=== PATIENT | male | born 1950 | race Caucasian/White ===

== ENCOUNTER → 2017-10-06 | Outpatient (CLI) | payer OTHER | LOC: CAT 10:38 | DX: M47.894 Other spondylosis, thoracic region (principal); I77.810 Thoracic aortic ectasia; J98.11 Atelectasis; J43.9 Emphysema, unspecified; M25.78 Osteophyte, vertebrae; J98.4 Other disorders of lung ==

== ENCOUNTER → 2020-08-15 | Outpatient (CLI) | payer OTHER ==
[~2020-08-15] MED LIST: HYDROCHLOROTH12.5 M2 PO; LOSARTAN POTASS50 MG PO; MELOXICAM7.5 MG PO; PROTONIX40 M2 PO
== END ==
LOC: LAB 08:16
PROVIDERS: ATTEND Surgery
DX: Z01.812 Encounter for preprocedural laboratory examination (principal); Z20.828 Contact with and (suspected) exposure to other viral communicable diseases

== ENCOUNTER 2020-08-20 06:29 | Day surgery (SDC) | payer OTHER ==
[~2020-08-20] VITALS: Ht 172.7 cm; Wt 90.7 kg
[2020-08-20 07:25] LABS: CREATININE 0.9 mg/dL (0.7-1.3); POTASSIUM 4.3 mmol/L (3.5-5.1)
--- NOTE | 2020-08-20 07:37 | EKG ---
[facility] [place] [address] ELECTROCARDIOGRAM REPORT Name: PALMA FREEMAN Room #: 150-4 [facility]..#: [id number] Admission: 08/20/20 Attend Phys: Vito Adams MD Discharge: Date of : 52 Report #: [id number] THIS REPORT FOR: cc: Aman Chacon David J. 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
[2020-08-20 07:58] VITALS: BP 134/92
[2020-08-20] MEDS ORDERED: NORCO 5-325 TA1 EAC2 PO (09:59)
[2020-08-20 10:22] VITALS: BP 134/92
--- NOTE | 2020-08-21 08:49 | H ---
[facility] [place] [address] HISTORY AND PHYSICAL Name: PALMA FREEMAN Room #: DEP [facility]#: [id number] Admission: 08/20/20 Attend Phys: Vito Adams MD Discharge: 08/20/20 Date of : 52 Report #: [id number] THIS REPORT FOR: cc: Aman Chacon,Aman Hunter,Vito Mina MD ~ CC: Aman Adams DATE OF SERVICE: 08/20/2020 SURGERY ADMISSION HISTORY AND PHYSICAL PATIENT OF: Dr. Vito Adams and Dr. Aman Chacon. DATE OF ADMISSION AND SURGERY: 08/20/2020 CHIEF COMPLAINT: Left upper quadrant abdominal pain and abdominal bulge. HISTORY OF PRESENT ILLNESS: The patient is a 70-year-old white male, notes that he had an umbilical bulge for about 5 years. He does not represent any significant discomfort at this time. He has had some left upper quadrant pain for about a year, but it only occurs when he turns and twists a certain way in bed. He relaxes and massages the area and the pain eventually goes away. He states he also noticed this bulge when he goes to sit up. He saw Dr. Chacon who recommended surgical consultation for these 3 problems. The patient denied any changes in bowel or bladder habits. He had a normal colonoscopy a year ago. PAST MEDICAL HISTORY: Arthritis, hypertension, diastasis recti, plastic surgical ear repair, cervical disk surgery. MEDICATIONS: Hydrochlorothiazide 12.5 mg p.o. every day, losartan 50 mg p.o. every day, pantoprazole 40 mg p.o. every day, meloxicam 7.5 mg p.o. every day, multivitamin. ALLERGIES: AMOXICILLIN AND CLAVULANIC ACID CAUSES A RASH AND WELTS. FAMILY HISTORY: Noncontributory. SOCIAL HISTORY: , retired, does not smoke, drinks alcohol occasionally. REVIEW OF SYSTEMS: Pertinent positives as above. Full review of systems otherwise negative. PHYSICAL EXAMINATION: GENERAL: This is a well-developed, well-nourished, obese white male in [address] [address] HISTORY AND PHYSICAL Name: PALMA FREEMAN Room #: [facility]#: [id number] Admission: 08/20/20 Attend Phys: Vito Adams MD Discharge: 08/20/20 Date of : 52 Report #: [id number]. VITAL SIGNS: Stable. He is afebrile. Height 68 inches, weight is 206 pounds. HEENT: Unremarkable. LUNGS: Clear to auscultation bilaterally. Normal excursion. CARDIOVASCULAR: Regular rate and rhythm. No murmurs, S3 or S4. No PMI. ABDOMEN: Soft, flat and nontender. No palpable masses, no organomegaly. He has a diastasis recti. He is examined in the standing, supine and flexed position. There is a palpable partially reducible, incarcerated umbilical hernia. No other organomegaly or masses. No rebound or guarding. EXTREMITIES: No clubbing, cyanosis or edema. NEUROLOGIC: Intact. No focal motor or sensory deficits. Mental status is clear. IMPRESSION: A 70-year-old white male with left upper quadrant abdominal musculoskeletal strain, asymptomatic diastasis recti and an umbilical hernia, which is partially incarcerated. I fully discussed with the patient the diagnosis, prognosis and treatment options. I am recommending a surgical repair of his umbilical hernia. He states he understands and agrees to proposed surgery. PLAN: We will perform repair of an incarcerated umbilical hernia under local IV sedation as an outpatient at [facility]. The procedure and its risks, benefits and possible complications were fully discussed with the patient including possible need for mesh. He states he understands and agrees to proposed surgery. <ELECTRONICALLY SIGNED> By: Vito Adams MD 08/21/20 0849 [id number] Vito Adams MD /nt
--- NOTE | 2020-08-21 08:49 | O ---
[facility] [place] [address] OPERATIVE REPORT Name: PALMA FREEMAN Room #: DEP [facility]#: [id number] Admission: 08/20/20 Attend Phys: Vito Adams MD Discharge: 08/20/20 Date of : 52 Report #: [id number] THIS REPORT FOR: cc: Aman Chacon David J. DO Franey, Thomas A. MD ~ CC: Aman Chacon DO [facility] Vito Adams DATE OF SERVICE: 08/20/2020 PATIENT OF: Dr. Vito Adams and Dr. Aman Chacon and [facility]. PREOPERATIVE DIAGNOSIS: Incarcerated ventral umbilical hernia. POSTOPERATIVE DIAGNOSIS: Incarcerated ventral umbilical hernia. PROCEDURE: Repair of an incarcerated ventral umbilical hernia. SURGEON: Vito Adams MD ANESTHESIA: Local IV sedation. DESCRIPTION OF PROCEDURE: The patient was brought to the operating room and placed on the operative table in the supine position. Sequential compression devices were in place for DVT prophylaxis. There was no indication for preoperative antibiotics. The patient's abdomen was then prepped and draped in a sterile fashion. Skin and subcutaneous tissue were then infiltrated with 0.5% Marcaine and 1% Xylocaine with epinephrine. A transverse infraumbilical skin incision was then performed using a #15 scalpel blade. Hemostasis obtained using the electrocautery. Dissection was carried around this incarcerated preperitoneal fat, which was dissected free and then reduced back through the fascial defect into the preperitoneal space. Fascia was then closed using interrupted [id number] #1 Prolene sutures. The umbilicus was then tacked to the fascia using simple interrupted 2-0 chromic sutures. Deep and superficial subcutaneous tissues were then reapproximated using simple interrupted 2-0 chromic sutures. The skin was then closed using running 4-0 subcuticular Vicryl stitch. The wound was then dressed with Dermabond, Telfa, 4 x 4 gauze, sponge and tape. The patient was then taken to the recovery room awake, alert and in good condition. Estimated blood loss was approximately [address] [address] OPERATIVE REPORT Name: PALMA FREEMAN Room #: DEP [facility]#: [id number] Admission: 08/20/20 Attend Phys: Vito Adams MD Discharge: 08/20/20 Date of : 52 Report #: [id number] and the patient tolerated procedure well. All sponge, lap and instrument counts correct x 2. <ELECTRONICALLY SIGNED> By: Vito Adams MD 08/21/20 0849 0953 [id number] Vito Adams MD /nt
== END 2020-08-20 10:03 | disposition home or self-care (01) ==
LOC: TBA 06:29 → OR 06:29
PROVIDERS: ATTEND Surgery
DX: K42.0 Umbilical hernia with obstruction, without gangrene (principal); I10 Essential (primary) hypertension; M19.90 Unspecified osteoarthritis, unspecified site; K21.9 Gastro-esophageal reflux disease without esophagitis; Z98.890 Other specified postprocedural states; Z79.899 Other long term (current) drug therapy; Z88.8 Allergy status to other drugs, medicaments and biological substances
CPT/HCPCS: 50010; 50101; 50386; 50417; 54118; 56524; 56525; 56526; 62110; 62850; 70005

== ENCOUNTER → 2021-10-27 | Outpatient (CLI) | payer OTHER ==
[~2021-10-27] MED LIST changes: +NORCO 5-325 TA1 EAC2 PO
== END ==
LOC: LAB 09:37 → MRI 09:37
PROVIDERS: ATTEND Otolaryngology
DX: H53.2 Diplopia (principal)

== ENCOUNTER → 2021-11-13 | Outpatient (CLI) | payer OTHER | LOC: MRI 12:57 → LAB 13:06 | PROVIDERS: ATTEND Otolaryngology | DX: H53.2 Diplopia (principal) ==